=== PATIENT | female | born 1950 | race Caucasian/White ===

== ENCOUNTER 2017-01-15 11:05 | Day surgery (SDC) | payer OTHER ==
[~2017-01-15] VITALS: Ht 152.4 cm; Wt 69.3 kg
[2017-01-15] MEDS ORDERED: LACTATED RINGERS 1,000 ML IV SCH (11:57)
[2017-01-15] MEDS ORDERED: LIDOCAINE 1%, 2ML ONE (12:01)
[2017-01-15] MEDS ORDERED: CLIN150C14 PO (12:03)
[2017-01-15] MEDS ORDERED: PROG100C2 PO (12:03)
[2017-01-15] MEDS ORDERED: LEVO75TA PO (12:03)
[2017-01-15] MEDS ORDERED: CELE50CA PO (12:03)
[2017-01-15] MEDS ORDERED: ESTR0.5T PO (12:03)
[2017-01-15 12:08] VITALS: BP 134/85
[2017-01-15] MEDS ORDERED: DEXAMETHASONE 4 MG/ML, 1ML ONE ×3 (13:06→13:14)
[2017-01-15] MEDS ORDERED: MIDAZOLAM 1 MG/ML, 2ML ONE ×2 (13:06→13:07)
[2017-01-15] MEDS ORDERED: ONDANSETRON 2MG/ML, 2ML ONE ×3 (13:06→13:26)
[2017-01-15] MEDS ORDERED: KETOROLAC 30 MG/1 ML ONE ×2 (13:06→13:26)
[2017-01-15] MEDS ORDERED: FENTANYL PF 100 MCG/2ML ONE ×2 (13:06→13:07)
[2017-01-15] MEDS ORDERED: PROPOFOL 10 MG/ML, 20ML ONE (13:06)
[2017-01-15] MEDS ORDERED: LIDOCAINE-MPF 2% ,5ML ONE (13:08)
[2017-01-15] MEDS ORDERED: CEFAZOLIN 1,000 MG ONE ×2 (13:13)
[2017-01-15] MEDS ORDERED: NEOSPORIN OINT, 15GM ONE (13:23)
[2017-01-15] MEDS ORDERED: FENTANYL PF 100 MCG/2ML IV PRN (13:30)
[2017-01-15] MEDS ORDERED: hydrALAzine 20 MG/ML, 1ML IV PRN (13:30)
[2017-01-15] MEDS ORDERED: LABETALOL 5MG/ML, 20ML IV PRN (13:30)
[2017-01-15] MEDS ORDERED: MEPERIDINE/PF 25MG/0.5ML IVPush PRN (13:30)
[2017-01-15] MEDS ORDERED: PROMETHAZINE 25 MG/ML, 1ML IV PRN (13:30)
[2017-01-15] MEDS ORDERED: ACETAMINOPHEN 325 MG TABLET PO PRN (13:30)
[2017-01-15] MEDS ORDERED: OXYcodone 5 MG/5 ML ORAL.SOL UDC PO PRN (13:30)
[2017-01-15] MEDS ORDERED: ONDANSETRON 2MG/ML, 2ML IVPush PRN (13:30)
[2017-01-15] MEDS ORDERED: HYDROmorphone 1 MG/ML, 1ML IV PRN (13:30)
[2017-01-15] MEDS ORDERED: ACETAMINOPHEN 650 MG/20.3 ML UDC ONE (13:59)
== END 2017-01-15 16:10 | disposition home or self-care (01) ==
LOC: OUT 11:05
PROVIDERS: ATTEND Orthopaedic Surgery
DX: T84.54XA Infection and inflammatory reaction due to internal left knee prosthesis, initial encounter (principal); Y83.8 Other surgical procedures as the cause of abnormal reaction of the patient, or of later complication, without mention of misadventure at the time of the procedure; Y92.89 Other specified places as the place of occurrence of the external cause; Z88.8 Allergy status to other drugs, medicaments and biological substances
CPT/HCPCS: 10180; 87070; 87075; 87176; 87205; J0690; J1100; J1885; J2250; J2405; J2704; J3010; J3490; J7120

== ENCOUNTER 2019-02-15 08:18 | Outpatient (CLI) | payer OTHER ==
[~2019-02-15 08:18] MED LIST: CELE50CA PO; CLIN150C14 PO; ESTR0.5T PO; LEVO75TA PO; PROG100C10 PO
== END 2019-02-15 23:59 | disposition home or self-care (01) ==
LOC: ROC 08:18
PROVIDERS: ATTEND Radiology Radiation Oncology
DX: C82.38 Follicular lymphoma grade IIIa, lymph nodes of multiple sites (principal)
CPT/HCPCS: 99214; G0463